=== PATIENT | male | born 1950 | race American Indian/Alaskan Native ===

== ENCOUNTER 2017-02-06 23:46 | Emergency (ER) | payer SELFPAY ==
[2017-02-06 23:57] VITALS: BP 151/74
--- NOTE | 2017-02-07 02:59 | Emergency Department Report ---
<PRESTON GUNTER - Last Filed: 02/07/17 03:51> ED Fall HPI - General Chief Complaint: Fall Stated Complaint: FALL/ARM AND BACK PAIN Time Seen by Provider: 02/07/17 01:58 Source: patient Mode of arrival: Ambulatory - History of Present Illness Initial Comments: This is a 66-year-old male well-nourished with nontoxic or ill in appearance but presents with left elbow and lower back pain status post slip and fall that occurred today around 1700 in [place]. Patient stated he came in from outside where was raining and slipped in [employer] while falling he was holding to a rail with her right hand and landed on his left elbow and low back. Patient denies any loss of consciousness, headache, fever, chills, nausea, vomiting, chest pain, shortness of breath, numbness, tingling, stiff neck. Patient denies head trauma. Patient denies any allergies. Denies significant past medical history. MD Complaint: fall -: Gradual, days(s) (1) Fall From: from height (distance) Place Fall Occurred: other ([employer] store) Loss of Consciousness: none Prolonged Down Time?: no Symptoms Prior to Fall: none Location: back (lower back) Location - Extremities: Left: Elbow Severity: moderate Severity scale (0 -10): 8 Quality: aching Context: tripped/slipped Associated Symptoms: denies. denies: headache, neck pain, numbness, weakness, chest paint, shortness of breath, abdominal pain, hematuria, unable to walk, lightheaded, vertigo, confusion - Related Data Previous Rx's Medication Instructions Recorded Last Taken Type Cyclobenzaprine [Flexeril] 10 mg PO TID PRN #15 tablet 02/07/17 Unknown Rx Ibuprofen [Motrin 600 MG tab] 600 mg PO Q8H PRN #15 tablet 02/07/17 Unknown Rx Allergies Allergy/AdvReac Type Severity Reaction Status Date / Time No Known Allergies Allergy Unverified 02/06/17 23:58 ED Review of Systems ROS: Stated complaint: FALL/ARM AND BACK PAIN Other details as noted in HPI Constitutional: denies: chills, fever Eyes: denies: eye pain, eye discharge, vision change ENT: denies: ear pain, throat pain Respiratory: denies: cough, shortness of breath, wheezing Cardiovascular: denies: chest pain, palpitations Endocrine: no symptoms reported Gastrointestinal: denies: abdominal pain, nausea, diarrhea Genitourinary: denies: urgency, dysuria Musculoskeletal: denies: back pain, joint swelling, arthralgia Skin: denies: rash, lesions Neurological: denies: headache, weakness, paresthesias Psychiatric: denies: anxiety, depression Hematological/Lymphatic: denies: easy bleeding, easy bruising ED Past Medical Hx - Past Medical History Previous Medical History?: No - Surgical History Additional Surgical History: R foot - Social History Smoking Status: Never Smoker Substance Use Type: None - Medications Home Medications: Home Medications Medication Instructions Recorded Confirmed Last Taken Type Cyclobenzaprine [Flexeril] 10 mg PO TID PRN #15 tablet 02/07/17 Unknown Rx Ibuprofen [Motrin 600 MG tab] 600 mg PO Q8H PRN #15 tablet 02/07/17 Unknown Rx ED Physical Exam - General Limitations: No Limitations General appearance: alert, in no apparent distress - Head Head exam: Present: atraumatic, normocephalic, normal inspection - Eye Eye exam: Present: normal appearance, PERRL, EOMI. Absent: scleral icterus, conjunctival injection, nystagmus, periorbital swelling, periorbital tenderness Pupils: Present: normal accommodation - ENT ENT exam: Present: normal exam, normal orophraynx, mucous membranes moist, TM's normal bilaterally, normal external ear exam - Neck Neck exam: Present: normal inspection, full ROM. Absent: tenderness, meningismus, lymphadenopathy, thyromegaly - Respiratory Respiratory exam: Present: normal lung sounds bilaterally. Absent: respiratory distress, wheezes, rales, rhonchi, stridor, chest wall tenderness, accessory muscle use, decreased breath sounds, prolonged expiratory - Cardiovascular Cardiovascular Exam: Present: regular rate, normal rhythm, normal heart sounds. Absent: bradycardia, tachycardia, irregular rhythm, systolic murmur, diastolic murmur, rubs, gallop - GI/Abdominal GI/Abdominal exam: Present: soft, normal bowel sounds. Absent: distended, tenderness, guarding, rebound, rigid - Rectal Rectal exam: Present: deferred - Extremities Exam Extremities exam: Present: normal inspection, full ROM, normal capillary refill. Absent: tenderness, pedal edema, joint swelling, calf tenderness - Back Exam Back exam: Present: normal inspection, full ROM, tenderness, paraspinal tenderness (lumbar region), vertebral tenderness (lumbar spinal tenderness). Absent: CVA tenderness (R), CVA tenderness (L), muscle spasm, rash noted - Expanded Back Exam Expanded Back exam: Absent: saddle anesthesia Back exam: Negative Straight Leg Raising: Left, Right - Neurological Exam Neurological exam: Present: alert, oriented X3, CN II-XII intact, normal gait - Expanded Neurological Exam Expanded Patient oriented to: Present: person, place, time Speech: Present: fluid speech (normal speech) Cranial nerves: EOM's Intact: Normal, Gag Reflex: Normal, Tongue Deviation: Normal, Nystagmus: Normal, Facial Sensation: Normal, Facial Palsy with Forehead Movement: Normal, Facial Palsy without Forehead Movement: Normal Cerebellar function: Finger to Nose: Normal, Heel to [place]: Normal, Romberg: Normal Upper motor neuron: Raul Neglect: Normal, Pronator Drift: Normal, Babinski Sign : Normal, Sensory Extinction: Normal Sensory exam: Upper Extremity Light Touch: Normal, Upper Extremity Pin Prick: Normal, Upper Extremity Temperature: Normal, UE 2 Point Discrimination: Normal, Lower Extremity Light Touch: Normal, Lower Extremity Pin Prick: Normal, Lower Extremity Temperature: Normal, LE 2 Point Discrimination: Normal Motor strength exam: RUE: 5, LUE: 5, RLE: 5, LLE: 5 DTR: bicep (R): 2+, bicep (L): 2+, tricep (R): 2+, tricep (L): 2+, knee (R): 2+ , knee (L): 2+, ankle (R): 2+, ankle (L): 2+ Best Eye Response ([place]): (4) open spontaneously Best Motor Response ([place]): (6) obeys commands Best Verbal Response ([place]): (5) oriented Rusty Total: 15 - Psychiatric Psychiatric exam: Present: normal affect, normal mood - Skin Skin exam: Present: warm, dry, intact, normal color. Absent: rash - Other Other exam information: No bladder or bowel instability. No joint swelling or redness. No deformity. No numbness, no tingling. No ecchymosis. No abdominal distention. ED Course Vital Signs 02/06/17 23:55 Temperature 98.7 F Pulse Rate 68 Respiratory 18 Rate Blood Pressure 151/74 O2 Sat by Pulse 99 Oximetry - Reevaluation(s) Reevaluation #1: 02/07/17 03:01 Patient is resting comfortably with no signs of distress. - Consultations Consultation #2: 02/07/17 03:51 Dr. Mcdonald has been notified and consulted about patient and Ct findings. Agrees to the d/c plan of care. ED Medical Decision Making - Medical Decision Making Ed course: This is a 66-year-old male that presents with left elbow strain and low back strain s/p slip and fall 1- after my physical exam, patient received ibuprofen 600 mg by mouth in ED as well as x-ray of elbow and lumbar sacral. X-rays results has been notified and patient with no further questions noted by patient. 2- patient received ibuprofen and Flexeril at the time of discharge and was instructed not to operate heavy machine while taking Flexeril due to drowsiness/ sedation. 3- patient was instructed to follow-up with your primary care doctor in 3-5 days or if symptoms worsen such as bladder or bowel stability, chest pain, short of breath, numbness or tingling sensation in extremities, headache, dizziness, visual changes, nausea vomiting, or abdominal pain, upper back to emergency room as was possible. 4- at time time of discharge, the patient does not seem toxic or ill in appearance. No acute signs of distress noted. Patient agrees to discharge treatment plan of care. No further questions noted by the patient. 5- patient received an Ben wrap to the left elbow and was instructed to rest and elevate, as well as put ice to the extremity. Critical care attestation.: If time is entered above; I have spent that time in minutes in the direct care of this critically ill patient, excluding procedure time. ED Disposition Disposition: DC-01 TO HOME OR SELFCARE Is pt being admited?: No Does the pt Need Aspirin: No Condition: Stable Instructions: Ibuprofen (By mouth), Low Back Strain (ED) Additional Instructions: Take ibuprofen and Flexeril as prescribed. Do not operate heavy machinery while taking Flexeril due to sedation follow-up with your primary care doctor in 3-5 days or if symptoms worsen such as bladder or bowel stability, chest pain, short of breath, numbness or tingling sensation in extremities, headache, dizziness, visual changes, nausea vomiting, or abdominal pain, upper back to emergency room as was possible. Prescriptions: Cyclobenzaprine [Flexeril] 10 mg PO TID PRN #15 tablet PRN Reason: Muscle Spasm Ibuprofen [Motrin 600 MG tab] 600 mg PO Q8H PRN #15 tablet PRN Reason: Pain Referrals: PRIMARY CAREMD [Primary Care Provider] - 3-5 Days SLOAN ROY MD [Staff Physician] - 3-5 Days [facility] [Outside] - 3-5 Days [facility] [Outside] - 3-5 Days Forms: Work/School Release Form(ED) <ARNAV MCDONALD - Last Filed: 02/10/17 01:57> ED Course - Consultations Consultation #2: 02/10/17 01:57 Pt did not have a ct. Xray reports reviewed.
[2017-02-07] MEDS ORDERED: MOTRIN PO ONE (03:03)
--- NOTE | 2017-02-07 03:39 | XRay Report ---
FINAL REPORT PROCEDURE: XR SPINE LUMBOSACRAL 2-3V TECHNIQUE: Lumbar spine radiographs, frontal and lateral views. CPT 21157 HISTORY: spinal tenderness s/p fall COMPARISON: No prior studies are available for comparison. FINDINGS: Alignment: Normal . Vertebral body heights/Disk spaces: There is loss of disc height and osteophytic ridging at L5-S1.. Fracture(s): None . Facets: Normal . Bone mineralization: Normal . There is calcified plaque in the abdominal aorta. There is no aneurysm. IMPRESSION: There is no acute traumatic injury. There is degenerative disc change at L5-S1.
--- NOTE | 2017-02-07 03:40 | XRay Report ---
FINAL REPORT PROCEDURE: XR ELBOW 3 LT TECHNIQUE: Left elbow radiographs, including AP, lateral, and oblique views. CPT 10769 HISTORY: fall COMPARISON: No prior studies are available for comparison. FINDINGS: Fracture (s) and/or Dislocation(s): None . Alignment: Normal . Joint space(s): Normal . Soft tissues: Normal . Bone mineralization: Normal . Foreign bodies: None . IMPRESSION: Normal Examination
== END 2017-02-07 04:10 | disposition home or self-care (01) ==
LOC: ED 23:46
DX: M25.532 Pain in left wrist (principal); M54.5 Low back pain; W01.0XXA Fall on same level from slipping, tripping and stumbling without subsequent striking against object, initial encounter; Y93.02 Activity, running; Y99.8 Other external cause status; Y92.89 Other specified places as the place of occurrence of the external cause
CPT/HCPCS: 72100